=== PATIENT | female | born 1985 | race Two or more races ===

== ENCOUNTER 2017-09-23 16:54 | Emergency (ER) | payer OTHER, MEDICAID | END 2017-09-23 18:39 | disposition home or self-care (01) | LOC: E/R 16:54 | DX: J20.9 Acute bronchitis, unspecified (principal) | CPT/HCPCS: 99284 ==

== ENCOUNTER 2018-02-12 21:19 | Emergency (ER) | payer SELFPAY, MEDICAID | END 2018-02-13 00:10 | disposition left against medical advice (07) | LOC: FTE 21:19 | DX: Z53.21 Procedure and treatment not carried out due to patient leaving prior to being seen by health care provider (principal) ==

== ENCOUNTER 2018-02-14 13:23 | Emergency (ER) | payer OTHER | END 2018-02-14 16:32 | disposition home or self-care (01) | LOC: FTE 13:23 | DX: S93.602A Unspecified sprain of left foot, initial encounter (principal); X58.XXXA Exposure to other specified factors, initial encounter; Y92.9 Unspecified place or not applicable | CPT/HCPCS: 73630; 73630-LT; 81025; 99283-25 ==